=== PATIENT | male | born 1985 | race Caucasian/White ===

== ENCOUNTER 2021-06-30 14:21 | Emergency (ER) | payer MEDICARE, MEDICAID ==
[~2021-06-30] VITALS: Ht 177.8 cm; Wt 95.2 kg
[2021-06-30 14:24] VITALS: BP 147/83
[2021-06-30] MEDS ORDERED: LORazepam 2 mg/ml vial IM ONE (14:30)
--- NOTE | 2021-06-30 15:01 | NUR ---
Pt currently resting with eyes closed, pt remains calm and cooperative and in no observable distress
[2021-06-30] MEDS ORDERED: risperiDONE 2mg tablet PO ONE (15:10)
[2021-06-30 15:45] LABS: BASOPHILS % (AUTO) 0.5 % (0-1); EOSINOPHILS # (AUTO) 0.1 X10'3 (0-0.9); EOSINOPHILS % (AUTO) 1.2 % (0-6); HEMATOCRIT 41.4 % (42.0-52.0); HEMOGLOBIN 13.6 g/dl (14.0-17.9); LYMPHOCYTES # (AUTO) 0.9 X10'3 (1.1-4.8); LYMPHOCYTES % (AUTO) 19.6 % (21-51); MEAN CORPUSCULAR HEMOGLOBIN 27.2 PG (27.0-31.0); MEAN CORPUSCULAR HGB CONC 32.8 g/dL (33.0-36.5); MEAN CORPUSCULAR VOLUME 82.9 FL (78-98); MEAN PLATELET VOLUME 7.5 FL (7.4-10.4); MONOCYTES # (AUTO) 0.5 X10'3 (0-0.9); MONOCYTES % (AUTO) 10.8 % (2-12); NEUTROPHILS # (AUTO) 3.3 X10'3 (1.8-7.7); NEUTROPHILS % (AUTO) 67.9 % (42-75); PLATELET COUNT 270 X10'3 (140-440); RED BLOOD COUNT 4.99 X10'6 (4.70-6.10); RED CELL DISTRIBUTION WIDTH 12.9 % (11.5-14.5); WHITE BLOOD COUNT 4.8 X10'3 (4.5-11.0)
[2021-06-30 15:59] LABS: ALANINE AMINOTRANSFERASE 28 U/L (12-78); ALBUMIN 3.7 G/DL (3.4-5.0); ALKALINE PHOSPHATASE 101 IU/L (46-116); ANION GAP 9 (8-16); ASPARTATE AMINO TRANSFERASE 18 U/L (10-37); BILIRUBIN,TOTAL 0.3 MG/DL (0.1-1.0); BLOOD UREA NITROGEN 7 MG/DL (7-18); BUN/CREATININE RATIO 8.1 (5.4-32.0); CALCIUM 8.8 MG/DL (8.5-10.1); CHLORIDE 107 MMOL/L (99-107); CREATININE 0.86 MG/DL (0.60-1.10); GLUCOSE 96 MG/DL (70-104); POTASSIUM 3.7 MMOL/L (3.5-5.1); SODIUM 144 MMOL/L (135-145); TOTAL CARBON DIOXIDE 28.5 MMOL/L (24-32); TOTAL PROTEIN 7.3 G/DL (6.4-8.2); eGFR > 90 ML/MIN
[2021-06-30 16:07] LABS: ETHANOL < 0.010 GM/DL (0.0-0.010)
[2021-06-30 16:33] LABS: URINE AMPHETAMINE SCREEN NEGATIVE (Neg); URINE BARBITUATE SCREEN NEGATIVE (Neg); URINE BENZODIAZEPINES SCREEN NEGATIVE (Neg); URINE CANNABINOID SCREEN NEGATIVE (Neg); URINE COCAINE SCREEN NEGATIVE (Neg); URINE METHADONE SCREEN NEGATIVE (Neg); URINE OPIATE SCREEN NEGATIVE (Neg); URINE PHENCYCLIDINE SCREEN NEGATIVE (Neg)
[2021-06-30 16:55] LABS: CLARITY,URINE CLEAR (Clear); COLOR,URINE YELLOW (Yellow); UA COLLECTION TYPE NON-SPECIFIED
[2021-06-30 16:56] LABS: PROTEIN,URINE NEGATIVE (Neg)
[2021-06-30 16:57] LABS: GLUCOSE, URINE NEGATIVE (Neg); KETONES,URINE NEGATIVE (Neg); NITRITES, URINE NEGATIVE (Neg); OCCULT BLOOD,URINE NEGATIVE (Neg)
[2021-06-30 16:58] LABS: LEUKOCYTE ESTERASE ,URINE NEGATIVE (Neg); UROBILINOGEN,URINE 0.2 E.U/dL (0.2-1.0)
--- NOTE | 2021-06-30 18:56 | NUR ---
Packet sent to [facility]
[2021-06-30] MEDS ORDERED: rexulti PO (20:22)
[2021-06-30] MEDS ORDERED: CLOM50CA2 PO (20:22)
[2021-06-30] MEDS ORDERED: DICY10CA88 PO (20:22)
[2021-06-30] MEDS ORDERED: LORA-269 PO (20:23)
--- NOTE | 2021-06-30 20:39 | NUR ---
The patient moved to bed 22 in the overflow. He was cooperative with the move. He stated that he has been diagnoised with OCD and IBS and he leaves in [place] with his mother and brother in [facility]. He stated that before he came in he felt like dying but denies active suicidal thoughts. He denies drugs or ETOH abuse. He reports he is on SSI. He denies thoughts to harm others. Psychotic symptoms are denied. His affect is flat. Eye contact is minimal
[2021-06-30] MEDS ORDERED: LORazepam 1 MG tablet PO PRN (20:45)
[2021-06-30] MEDS ORDERED: dicyclomine 10 MG capsule PO PRN (20:45)
[2021-06-30] MEDS ORDERED: CLOMIPRAMINE HCL 50 MG CAPSULE PO SCH (21:00)
--- NOTE | 2021-06-30 23:02 | NUR ---
The patient is resting on his bed and appears to be sleeping
--- NOTE | 2021-07-01 02:33 | NUR ---
The patient appears to be sleeping
--- NOTE | 2021-07-01 04:04 | NUR ---
The patient appears to be sleeping
--- NOTE | 2021-07-01 07:02 | NUR ---
Pt resting comfortably with eyes closed, no visible distress noted. Respirations even and unlabored.
--- NOTE | 2021-07-01 08:52 | NUR ---
pt being evaled by [facility]
--- NOTE | 2021-07-01 08:56 | NUR ---
pt crying stated he wants to play on his phone. Educated about mental health holds and given Jung and coloring book. [facility] stated will release pt and going to speak with md now.
--- NOTE | 2021-07-01 09:17 | NUR ---
pt resting in bed. spoke with [facility] and stated family on the way to pick pt up but lived in [place].
== END 2021-07-01 09:50 | disposition home or self-care (01) ==
LOC: ER 14:22
DX: F79 Unspecified intellectual disabilities (principal); Z20.822 Contact with and (suspected) exposure to COVID-19; F32.9 Major depressive disorder, single episode, unspecified; F41.0 Panic disorder [episodic paroxysmal anxiety]; F20.9 Schizophrenia, unspecified; Z79.899 Other long term (current) drug therapy
CPT/HCPCS: 36415; 80053; 80305; 80320; 81003; 84443; 85025; 87635; 96372; 99284; C9803; J2060